=== PATIENT | female | born 1995 ===

== ENCOUNTER 2019-04-30 05:45 | Day surgery (SDC) | payer OTHER ==
[~2019-04-30 05:45] MED LIST: ADERALL PO; ANAPROX; GENERESS PO; NASAL MIST126 ML
[2019-04-30] MEDS ORDERED: ULTRACET PO (10:17)
[2019-04-30] MEDS ORDERED: NAPR500T14 PO (10:17)
== END 2019-04-30 11:40 | disposition home or self-care (01) ==
LOC: CIR.AMB 05:45
DX: D26.0 Other benign neoplasm of cervix uteri (principal); D26.1 Other benign neoplasm of corpus uteri

== ENCOUNTER 2023-05-16 10:50 | Outpatient (CLI) | payer OTHER ==
[~2023-05-16 10:50] MED LIST changes: +NAPR500T14 PO; +ULTRACET PO
== END 2023-05-16 10:52 | disposition home or self-care (01) ==
LOC: PRENATAL 10:50
PROVIDERS: ATTEND Obstetrics & Gynecology Maternal & Fetal Medicine
DX: O26.849 Uterine size-date discrepancy, unspecified trimester (principal); O44.00 Complete placenta previa NOS or without hemorrhage, unspecified trimester; Z3A.27 27 weeks gestation of pregnancy

== ENCOUNTER 2025-06-18 13:25 | Outpatient (CLI) | payer OTHER | END 2025-06-18 13:26 | disposition home or self-care (01) | LOC: PRENATAL 13:25 | PROVIDERS: ATTEND Obstetrics & Gynecology Maternal & Fetal Medicine | DX: O36.80X0 Pregnancy with inconclusive fetal viability, not applicable or unspecified (principal); Z36.82 Encounter for antenatal screening for nuchal translucency; Z14.8 Genetic carrier of other disease; Z3A.12 12 weeks gestation of pregnancy ==